=== PATIENT | female | born 1945 | race Caucasian/White ===

== ENCOUNTER 2022-08-23 10:25 | Emergency (ER) | payer BC, MEDICARE ==
[2022-08-23 11:32] LABS: PTT,PARTIAL THROMBOPLSTIN TIME 24.8 SEC (22.0-34.0)
[2022-08-23 11:33] LABS: ANION GAP 11.1 mEq/L (7-13)
== END 2022-08-23 12:24 ==
LOC: DL.ED 10:25
DX: S30.1XXA Contusion of abdominal wall, initial encounter (principal); I97.610 Postprocedural hemorrhage of a circulatory system organ or structure following a cardiac catheterization; D50.0 Iron deficiency anemia secondary to blood loss (chronic); E66.9 Obesity, unspecified; Z68.38 Body mass index [BMI] 38.0-38.9, adult; Z79.82 Long term (current) use of aspirin; Z79.899 Other long term (current) drug therapy
CPT/HCPCS: 36415; 80053; 85025; 85610; 85730; 99285

== ENCOUNTER 2025-02-01 12:34 | Inpatient (IN) | payer MEDICARE ==
[2025-02-01] MEDS ORDERED: Sodium Chloride 0.9% 10 ML Syringe FLUSH PRN ×2 (12:59→14:53)
[2025-02-01 13:13] LABS: MEAN CORPUSCULAR HEMOGLOBIN 34.3 pg (27.0-34.0); MEAN CORPUSCULAR HGB CONC 34.9 g/dL (33.0-35.0); MEAN CORPUSCULAR VOLUME 98.3 fL (80-100); PLATELET COUNT,PLT 83 10^3/uL (150-450); RED BLOOD CELL COUNT 1.72 10^6/uL (4.2-5.4); WHITE BLOOD CELL COUNT,WBC 2.5 10^3/uL (5.0-10.0)
[2025-02-01 13:16] LABS: HEMATOCRIT 16.9 % (37.0-47.0); HEMOGLOBIN 5.9 g/dL (12.0-16.0); LYMPHOCYTES PERCENT AUTO 25.8 % (20.5-50.1); NEUTROPHILS PERCENT AUTO 54.9 % (42.2-75.2)
[2025-02-01 13:17] LABS: BASOPHILS PERCENT AUTO 3.6 % (0.0-1.0); EOSINOPHILS PERCENT AUTO 0.8 % (1.0-3.0); MONOCYTES PERCENT AUTO 14.9 % (2-8)
[2025-02-01 13:33] LABS: INR 1.2 (0.9-1.2); PROTHROMBIN TIME 12.2 SEC (9.0-12.0)
[2025-02-01 13:42] LABS: A/G RATIO 1.5; ALBUMIN 3.7 g/dL (3.4-5.0); ANION GAP 12.2 mEq/L (7-13); BUN/CREATININE RATIO 20.4 (No establ ref range); CALCIUM 9.2 mg/dL (8.5-10.1); CREATININE 1.13 mg/dL (0.55-1.02); MAGNESIUM 1.9 mg/dL (1.8-2.4); POTASSIUM,K 4.2 mmol/L (3.5-5.1); PROTEIN TOTAL,TP 6.1 g/dL (6.4-8.2)
[2025-02-01 14:22] LABS: EOSINOPHILS PERCENT MAN 2 % (1-3); LYMPHOCYTES PERCENT MAN 35 % (20-50); MONOCYTES PERCENT MAN 14 % (2-8); SEG NEUTROPHILS PERCENT MAN 49 % (42-75)
[2025-02-01] MEDS ORDERED: Polyethylene Glycol 3350 Powder 17 GM Packet PO PRN (14:53)
[2025-02-01] MEDS ORDERED: Docusate Sodium 100 MG Cap PO PRN (14:53)
[2025-02-01] MEDS ORDERED: Bisacodyl 5 MG Tab PO PRN (14:53)
[2025-02-01] MEDS: MVI, Adult with Vitamin K 10 ML, Folic Acid 1 MG, Thiamine 100 MG in Lactated Ringers 1... IV ONE (15:20)
[2025-02-01 16:02] LABS: PERCENT FE SATURATION 94.6 % (20.0-50.0)
[2025-02-01] MEDS: Timolol Maleate 0.5% Ophth Soln 5 ML Bottle EYEBOTH SCH (20:52)
[2025-02-01] MEDS: Gabapentin 300 MG Cap PO SCH (20:52)
[2025-02-01] MEDS: Apixaban 5 MG Tab PO SCH (20:52)
[2025-02-02] MEDS: Acetaminophen 325 MG Tab PO PRN (02:27)
[2025-02-02 06:41] LABS: MEAN CORPUSCULAR HEMOGLOBIN 34.1 pg (27.0-34.0); MEAN CORPUSCULAR HGB CONC 34.1 g/dL (33.0-35.0); PLATELET COUNT,PLT 94 10^3/uL (150-450); RED BLOOD CELL COUNT 1.85 10^6/uL (4.2-5.4); WHITE BLOOD CELL COUNT,WBC 3.6 10^3/uL (5.0-10.0)
[2025-02-02 06:51] LABS: BASOPHILS PERCENT AUTO 2.7 % (0.0-1.0); EOSINOPHILS PERCENT AUTO 0.5 % (1.0-3.0); HEMATOCRIT 18.5 % (37.0-47.0); HEMOGLOBIN 6.3 g/dL (12.0-16.0); LYMPHOCYTES PERCENT AUTO 28.3 % (20.5-50.1); MONOCYTES PERCENT AUTO 12.9 % (2-8); NEUTROPHILS PERCENT AUTO 55.6 % (42.2-75.2)
[2025-02-02 06:59] LABS: A/G RATIO 1.5; ALBUMIN 3.8 g/dL (3.4-5.0); ANION GAP 9.9 mEq/L (7-13); BILIRUBIN TOTAL 0.8 mg/dL (0.2-1.0); BUN/CREATININE RATIO 23.5 (No establ ref range); CALCIUM 9.2 mg/dL (8.5-10.1); CREATININE 1.02 mg/dL (0.55-1.02); EST CRCL DRUG DOSING (CG) 32.12 mL/min; POTASSIUM,K 4.9 mmol/L (3.5-5.1); PROTEIN TOTAL,TP 6.4 g/dL (6.4-8.2)
[2025-02-02 07:52] LABS: BASOPHILS PERCENT MAN 1; LYMPHOCYTES PERCENT MAN 27 % (20-50); MONOCYTES PERCENT MAN 11 % (2-8); SEG NEUTROPHILS PERCENT MAN 61 % (42-75)
[2025-02-02] MEDS: Ezetimibe 10 MG Tab PO SCH (08:50)
[2025-02-02] MEDS: Aspirin 81 MG Tab.EC PO SCH (08:51)
[2025-02-02] MEDS: Acetaminophen 325 MG Tab PO ONE (08:52)
[2025-02-02] MEDS: Escitalopram 10 MG Tab PO SCH (08:53)
[2025-02-02] MEDS: Ondansetron 4 MG/2 ML SDV IVPUSH PRN (08:57)
[2025-02-02] MEDS: diphenhydrAMINE 50 MG/ML SDV IVPUSH ONE (08:57)
[2025-02-02] MEDS: rOPINIRole 0.25 MG Tab PO SCH (09:58)
[2025-02-02] MEDS: Sodium Chloride 0.9% 250 ML IV SCH (10:00)
[2025-02-02] MEDS: Bumetanide 1 MG/4 ML MDV IVPUSH SCH (12:43)
[2025-02-02] MEDS: BUMETANIDE ONE (17:12)
[2025-02-02 19:19] LABS: HEMATOCRIT 24.7 % (37.0-47.0); HEMOGLOBIN 8.4 g/dL (12.0-16.0)
[2025-02-03 06:24] LABS: HEMOGLOBIN 7.3 g/dL (12.0-16.0); MEAN CORPUSCULAR HEMOGLOBIN 33.2 pg (27.0-34.0); MEAN CORPUSCULAR HGB CONC 34.8 g/dL (33.0-35.0); MEAN CORPUSCULAR VOLUME 95.5 fL (80-100); PLATELET COUNT,PLT 66 10^3/uL (150-450); WHITE BLOOD CELL COUNT,WBC 4.5 10^3/uL (5.0-10.0)
[2025-02-03 06:30] LABS: BASOPHILS PERCENT AUTO 2.7 % (0.0-1.0); EOSINOPHILS PERCENT AUTO 0.4 % (1.0-3.0); LYMPHOCYTES PERCENT AUTO 16.4 % (20.5-50.1); MONOCYTES PERCENT AUTO 8.4 % (2-8); NEUTROPHILS PERCENT AUTO 72.1 % (42.2-75.2)
[2025-02-03 06:46] LABS: A/G RATIO 1.5; ALBUMIN 3.8 g/dL (3.4-5.0); ANION GAP 13.4 mEq/L (7-13); BILIRUBIN TOTAL 1.7 mg/dL (0.2-1.0); BUN/CREATININE RATIO 28.4 (No establ ref range); CALCIUM 9.3 mg/dL (8.5-10.1); CREATININE 0.95 mg/dL (0.55-1.02); EST CRCL DRUG DOSING (CG) 34.49 mL/min; POTASSIUM,K 4.4 mmol/L (3.5-5.1); PROTEIN TOTAL,TP 6.4 g/dL (6.4-8.2)
[2025-02-03 07:10] LABS: BASOPHILS PERCENT MAN 1; LYMPHOCYTES PERCENT MAN 18 % (20-50); MONOCYTES PERCENT MAN 5 % (2-8); SEG NEUTROPHILS PERCENT MAN 76 % (42-75)
[2025-02-03] MEDS: Bumetanide 1 MG Tab PO ONE (10:10)
[2025-02-03] MEDS: Acetaminophen 325 MG Tab PO ONE (14:09)
[2025-02-03] MEDS: diphenhydrAMINE 50 MG/ML SDV IV ONE (14:10)
[2025-02-03] MEDS: diphenhydrAMINE 50 MG/ML SDV ONE (14:25)
[2025-02-03] MEDS: Sodium Chloride 0.9% 1,000 ML IV SCH (14:52)
[2025-02-03] MEDS: Bumetanide 1 MG/4 ML MDV IVPUSH SCH (18:29)
[2025-02-03] MEDS: Melatonin 3 MG Tab PO PRN (20:55)
[2025-02-04 06:31] LABS: HEMATOCRIT 24.8 % (37.0-47.0); HEMOGLOBIN 8.4 g/dL (12.0-16.0); MEAN CORPUSCULAR HEMOGLOBIN 31.9 pg (27.0-34.0); MEAN CORPUSCULAR HGB CONC 33.9 g/dL (33.0-35.0); MEAN CORPUSCULAR VOLUME 94.3 fL (80-100); PLATELET COUNT,PLT 53 10^3/uL (150-450); RED BLOOD CELL COUNT 2.63 10^6/uL (4.2-5.4); WHITE BLOOD CELL COUNT,WBC 4.3 10^3/uL (5.0-10.0)
[2025-02-04 06:41] LABS: BASOPHILS PERCENT AUTO 2.6 % (0.0-1.0); EOSINOPHILS PERCENT AUTO 0.5 % (1.0-3.0); LYMPHOCYTES PERCENT AUTO 18.1 % (20.5-50.1); MONOCYTES PERCENT AUTO 7.3 % (2-8); NEUTROPHILS PERCENT AUTO 71.5 % (42.2-75.2)
[2025-02-04 06:49] LABS: A/G RATIO 1.4; ALBUMIN 3.6 g/dL (3.4-5.0); ANION GAP 10.1 mEq/L (7-13); BILIRUBIN DIRECT 0.4 mg/dL (0.0-0.2); BUN/CREATININE RATIO 31.1 (No establ ref range); CALCIUM 9.3 mg/dL (8.5-10.1); CREATININE 0.9 mg/dL (0.55-1.02); EST CRCL DRUG DOSING (CG) 36.41 mL/min; MAGNESIUM 1.9 mg/dL (1.8-2.4); POTASSIUM,K 4.1 mmol/L (3.5-5.1); PROTEIN TOTAL,TP 6.2 g/dL (6.4-8.2)
[2025-02-04 06:56] LABS: LYMPHOCYTES PERCENT MAN 13 % (20-50); MONOCYTES PERCENT MAN 5 % (2-8); SEG NEUTROPHILS PERCENT MAN 82 % (42-75)
[2025-02-04] MEDS: Brimonidine 0.2% Ophth Soln 5 ML Bottle EYEBOTH SCH (08:02)
[2025-02-04] MEDS: Bumetanide 1 MG Tab PO SCH (11:48)
[2025-02-04 12:22] LABS: TSH ULTRASENSITIVE 1.6 uIU/mL (0.36-3.74)
[2025-02-04] MEDS: Potassium Chloride 10 MEQ Tab.ER PO ONE (15:48)
[2025-02-04] MEDS: Bumetanide 1 MG Tab PO ONE (15:49)
[2025-02-04] MEDS: Metoprolol Succinate 25 MG Tab.ER PO ONE (17:31)
[2025-02-05 06:20] LABS: BASOPHILS PERCENT AUTO 1.7 % (0.0-1.0); EOSINOPHILS PERCENT AUTO 0.3 % (1.0-3.0); HEMATOCRIT 24.7 % (37.0-47.0); HEMOGLOBIN 8.6 g/dL (12.0-16.0); LYMPHOCYTES PERCENT AUTO 21.2 % (20.5-50.1); MEAN CORPUSCULAR HEMOGLOBIN 33.5 pg (27.0-34.0); MEAN CORPUSCULAR HGB CONC 34.8 g/dL (33.0-35.0); MEAN CORPUSCULAR VOLUME 96.1 fL (80-100); MONOCYTES PERCENT AUTO 6.9 % (2-8); NEUTROPHILS PERCENT AUTO 69.9 % (42.2-75.2); PLATELET COUNT,PLT 48 10^3/uL (150-450); RED BLOOD CELL COUNT 2.57 10^6/uL (4.2-5.4); WHITE BLOOD CELL COUNT,WBC 3.5 10^3/uL (5.0-10.0)
[2025-02-05 06:50] LABS: A/G RATIO 1.2; ALBUMIN 3.5 g/dL (3.4-5.0); ANION GAP 6.5 mEq/L (7-13); BILIRUBIN TOTAL 0.9 mg/dL (0.2-1.0); CALCIUM 9.5 mg/dL (8.5-10.1); EST CRCL DRUG DOSING (CG) 32.77 mL/min; MAGNESIUM 2.1 mg/dL (1.8-2.4); POTASSIUM,K 4.5 mmol/L (3.5-5.1); PROTEIN TOTAL,TP 6.3 g/dL (6.4-8.2)
[2025-02-05] MEDS: Metoprolol Succinate 25 MG Tab.ER PO SCH (09:49)
[2025-02-05] MEDS: Bumetanide 1 MG Tab PO ONE (09:50)
== END 2025-02-05 14:46 | DRG 812 ==
LOC: DL.ED 12:34 → DL.MS 14:27 → OBSVTOIN 02-03 12:01
PROVIDERS: ADMIT Student in an Organized Health Care Education/Training Program; ATTEND Student in an Organized Health Care Education/Training Program
PROC: 30233N1 Transfusion of Nonautologous Red Blood Cells into Peripheral Vein, Percutaneous Approach (ICD-10-PCS; principal; 2025-02-02)
PROC: 30233N1 Transfusion of Nonautologous Red Blood Cells into Peripheral Vein, Percutaneous Approach (ICD-10-PCS; 2025-02-03)
DX: D46.9 Myelodysplastic syndrome, unspecified (principal); I13.0 Hypertensive heart and chronic kidney disease with heart failure and stage 1 through stage 4 chronic kidney disease, or unspecified chronic kidney disease; I48.11 Longstanding persistent atrial fibrillation; Z68.41 Body mass index [BMI] 40.0-44.9, adult; Z95.4 Presence of other heart-valve replacement; I11.0 Hypertensive heart disease with heart failure; D61.818 Other pancytopenia; I50.9 Heart failure, unspecified; D63.0 Anemia in neoplastic disease; H54.7 Unspecified visual loss; E78.00 Pure hypercholesterolemia, unspecified; G47.30 Sleep apnea, unspecified; M81.0 Age-related osteoporosis without current pathological fracture; F41.9 Anxiety disorder, unspecified; F32.A Depression, unspecified; E66.9 Obesity, unspecified; I25.10 Atherosclerotic heart disease of native coronary artery without angina pectoris; G25.81 Restless legs syndrome; G62.9 Polyneuropathy, unspecified; E66.01 Morbid (severe) obesity due to excess calories; E80.6 Other disorders of bilirubin metabolism; Z86.16 Personal history of COVID-19; Z79.01 Long term (current) use of anticoagulants; Z88.8 Allergy status to other drugs, medicaments and biological substances; Z79.82 Long term (current) use of aspirin; Z95.5 Presence of coronary angioplasty implant and graft; Z95.2 Presence of prosthetic heart valve; Z79.899 Other long term (current) drug therapy; Z98.49 Cataract extraction status, unspecified eye
CPT/HCPCS: 36415 ×3; 36430; 80053 ×3; 82272; 82728; 83540; 83550; 83735 ×3; 83880; 84484; 85014; 85018; 85025 ×3; 85610; 86850; 86900; 86901; 86920 ×2; 86922 ×2; 99285; A9270 ×22; J1200; J2405; J3411; J3490 ×2; J7120; P9016; P9040; 82248; 84439; 84443; 96365; 96366; 96375; 96376; 99223; 99233; 99238; G0378; J7030; J7050

== ENCOUNTER 2025-03-08 11:54 | Emergency (ER) | payer MEDICARE ==
[2025-03-08] MEDS ORDERED: Naloxone 2 MG/2 ML Syringe IVPUSH PRN ×2 (13:21→14:27)
[2025-03-08 13:45] LABS: HEMATOCRIT 27.9 % (37.0-47.0); HEMOGLOBIN 8.8 g/dL (12.0-16.0); MEAN CORPUSCULAR HEMOGLOBIN 32.7 pg (27.0-34.0); MEAN CORPUSCULAR HGB CONC 31.5 g/dL (33.0-35.0); MEAN CORPUSCULAR VOLUME 103.7 fL (80-100); PLATELET COUNT,PLT 129 10^3/uL (150-450); RED BLOOD CELL COUNT 2.69 10^6/uL (4.2-5.4); WHITE BLOOD CELL COUNT,WBC 3.6 10^3/uL (5.0-10.0)
[2025-03-08 13:59] LABS: ANION GAP 10.1 mEq/L (7-13); CALCIUM 9.8 mg/dL (8.5-10.1); CREATININE 1.33 mg/dL (0.55-1.02); EST CRCL DRUG DOSING (CG) 29.62 mL/min; POTASSIUM,K 4.1 mmol/L (3.5-5.1); PROTHROMBIN TIME 10.7 SEC (9.0-12.0)
[2025-03-08 14:03] LABS: BASOPHILS PERCENT AUTO 0.5 % (0.0-1.0); EOSINOPHILS PERCENT AUTO 0.8 % (1.0-3.0); LYMPHOCYTES PERCENT AUTO 17.9 % (20.5-50.1); MONOCYTES PERCENT AUTO 8.2 % (2-8); NEUTROPHILS PERCENT AUTO 72.6 % (42.2-75.2)
[2025-03-08] MEDS: fentaNYL 100 MCG/2 ML SDV IVPUSH ONE ×2 (14:11→14:36)
[2025-03-08 14:19] LABS: EOSINOPHILS PERCENT MAN 1 % (1-3); LYMPHOCYTES PERCENT MAN 22 % (20-50); MONOCYTES PERCENT MAN 5 % (2-8); SEG NEUTROPHILS PERCENT MAN 72 % (42-75)
[2025-03-08] MEDS: Lactated Ringers 1,000 ML IV ONE (14:27)
== END 2025-03-08 16:22 ==
LOC: DL.ED 11:54
DX: S72.112A Displaced fracture of greater trochanter of left femur, initial encounter for closed fracture (principal); I11.0 Hypertensive heart disease with heart failure; I50.9 Heart failure, unspecified; E78.00 Pure hypercholesterolemia, unspecified; E66.9 Obesity, unspecified; Z86.16 Personal history of COVID-19; Z79.899 Other long term (current) drug therapy; Z79.82 Long term (current) use of aspirin; Z88.8 Allergy status to other drugs, medicaments and biological substances; Z68.35 Body mass index [BMI] 35.0-35.9, adult; W19.XXXA Unspecified fall, initial encounter
CPT/HCPCS: 36415; 70450; 72128; 72131; 73560-LT; 80048; 85025; 85610; 96361; 96374; 99285-25; J3010; J7120